=== PATIENT | female | born 1965 | race American Indian/Alaskan Native ===

== ENCOUNTER 2016-10-13 18:22 | Emergency (ER) | payer MEDICAID ==
[2016-10-13 18:32] VITALS: BP 122/83
--- NOTE | 2016-10-13 18:41 | Emergency Department Report ---
Entered by PK CASILLAS, acting as scribe for AYAN DIAZ NP. Chief Complaint: Chest Pain Stated Complaint: CHEST PAIN Time Seen by Provider: 10/13/16 18:26 - HPI History of Present Illness: 51 y/o female presents with right sided chest pain that started 3 days ago. Pain is localized around port on right side of chest, which pt has not used in 3 years and was placed for cancer treatment. Sx include tingling but pt denies chills and fever. She denies ever having blockage in the port previously. Pt denies ETOH or tobacco use. - ROS Review of Systems: -fever -chills +chest pain +tingling - Exam Physical Exam: pt is well, non-toxic and in NAD. right upper arm felt firm and tender. MSE screening note: Focused history and physical exam performed. Due to findings the following was ordered: ED Disposition for MSE Condition: Stable This documentation as recorded by the scribe,PK CASILLAS,accurately reflects the service I personally performed and the decisions made by me,AYAN DIAZ [employer].
[2016-10-13 18:50] LABS: Basophils % (Auto) 0.3 % (0.0-1.8); Eosinophils % (Auto) 2.2 % (0.0-4.3); Hematocrit 37.8 % (30.3-42.9); Hemoglobin 12.4 gm/dl (10.1-14.3); Mean Corpuscular HGB Conc 33 % (30-34); Mean Corpuscular Hemoglobin 28 pg (28-32); Mean Corpuscular Volume 85 fl (79-97); Platelet Count 204 K/mm3 (140-440); Red Blood Count 4.47 M/mm3 (3.65-5.03); Red Cell Distribution Width 14.4 % (13.2-15.2); White Blood Count 6.8 K/mm3 (4.5-11.0)
[2016-10-13 19:00] LABS: INR 0.99 (0.87-1.13)
[2016-10-13 19:01] LABS: Partial Thromboplastin Time 29.2 Sec. (24.2-36.6)
[2016-10-13 19:09] LABS: Alanine Aminotransferase 41 units/L (7-56); Albumin 4.1 g/dL (3.9-5); Albumin/Globulin Ratio 1.2 %; Alkaline Phosphatase 136 units/L (35-129); Anion Gap 15 mmol/L; Blood Urea Nitrogen 15 mg/dL (7-17); Calcium 9.3 mg/dL (8.4-10.2); Carbon Dioxide 29 mmol/L (22-30); Chloride 101.9 mmol/L (98-107); Glucose 87 mg/dL (65-100); Sodium 142 mmol/L (137-145); Total Protein 7.5 g/dL (6.3-8.2)
--- NOTE | 2016-10-14 07:14 | XRay Report ---
ROUTINE CHEST, TWO VIEWS: HISTORY: chest pain. No comparison. A right Mydplo-g-Tlus is in good position terminating at the cavoatrial junction. The trachea, heart, mediastinal contour, lung duong and bony thorax are unremarkable. IMPRESSION: Unremarkable chest x-ray.
== END 2016-10-13 22:16 | disposition left against medical advice (07) ==
LOC: ED 18:22
DX: R07.9 Chest pain, unspecified (principal); Z53.21 Procedure and treatment not carried out due to patient leaving prior to being seen by health care provider
CPT/HCPCS: 36415; 71020; 80053; 83880; 84484; 85025; 85610; 85730; 93005; 93010